=== PATIENT | female | born 2005 | race Caucasian/White ===

== ENCOUNTER 2024-04-04 12:20 | Emergency (ER) | payer SELFPAY ==
[~2024-04-04] VITALS: Ht 160 cm; Wt 54.4 kg
[2024-04-04 12:24] VITALS: BP 107/56; PULSE 63; RESP 16; TEMP 36.8; O2SAT 99
== END 2024-04-04 17:23 | disposition left against medical advice (07) ==
LOC: ER 12:20
DX: R11.2 Nausea with vomiting, unspecified (principal); R10.9 Unspecified abdominal pain; Z53.21 Procedure and treatment not carried out due to patient leaving prior to being seen by health care provider